=== PATIENT | female | born 1930 | race Caucasian/White ===

== ENCOUNTER → 2018-02-05 | Outpatient (CLI) | payer MEDICARE, OTHER ==
[~2018-02-05] MED LIST: AMBEREN PO; ASPIRIN EC81 M1 PO; ATENOLOL 50 MG50 M1 PO; B-12500 MCG PO; CALCIUM PO; CARDURA4 MG PO; CLONIDINE0.1 PO; CO Q-1010 MG PO; COZAAR 25 MG TA25 M1 PO; FLAGYL500 MG PO; FLEXERIL PO; HYDRALAZINE 5050 M1 PO; KLOR-CON 10 ER10 MEQ PO; KLOR-CON 1010 MEQ PO; LASIX 20 MG TAB20 MG PO; LISINOPRIL10 MG PO; MELOXICAM15 MG PO; MIRALAX255 GM PO; MOBIC7.5 MG PO; MULTIVITAMINS1 EAC7 PO; MYRBETRIQ50 MG PO; NITROGLYCERIN0.4 MG SUBLING; NORCO 5-325 TA1 EACH PO; NORVASC 2.5 MG2.5 M1; NORVASC 5 MG TAB5 MG PO; OMEPRAZOLE PO; PEPCID AC20 M1 PO; PHENERGAN 25 MG25 M1 PO; PLAVIX 75 MG TA75 MG PO; PRILOSEC 20 MG20 MG PO; TENORMIN50 MG PO; TIROSINT75 MCG PO; TRIAMTERENE-HC1 EAC1 PO; TUMS PO; ULTRAM 50MG TAB50 MG PO; XANAX 0.25 MG0.25 MG PO; ZOCOR40 MG PO; ZOLOFT 50 MG TA50 MG PO
[2018-02-05 12:33] LABS: ABSOLUTE EOSINOPHILS 0.3 thou/uL (0.0-0.7); ABSOLUTE LYMPHOCYTES 1.6 thou/uL (0.8-5.3); ABSOLUTE NEUTROPHILS 4.3 thou/uL (1.6-8.1); BASOPHILS 0.6 %; EOSINOPHILS 4.5 %; HEMATOCRIT 31.9 % (37.0-47.0); HEMOGLOBIN 10.9 gm/dL (12.0-15.0); MCH 31.7 pg (26.0-34.0); MCHC 34.1 g/dL (28.0-37.0); MONOCYTES 13.8 %; MPV 8.5 fl. (7.2-11.1); NUCLEATED RBCS 0 /100WBC; PLATELET COUNT* 217 thou/uL (150-400); POLYS 59.1 %; RBC 3.43 mil/uL (4.20-5.00); RDW-CV 13.2 % (10.5-14.5); WBC 7.3 thou/uL (4.0-11.0)
[2018-02-05 12:39] LABS: URINE BILIRUBIN NEGATIVE (Negative); URINE BLOOD NEGATIVE (Negative); URINE CLARITY CLEAR; URINE COLOR YELLOW; URINE GLUCOSE-RANDOM NEGATIVE (Negative); URINE KETONES NEGATIVE (Negative); URINE LEUKOCYTES NEGATIVE (Negative); URINE NITRITE NEGATIVE (Negative); URINE PROTEIN NEGATIVE (Negative); URINE UROBILINOGEN 0.2 E.U./dl (0.2-1.0)
[2018-02-05 12:40] LABS: CALCIUM 9.2 mg/dL (8.5-10.1); CREATININE 1.9 mg/dL (0.6-1.3); MAGNESIUM 2.3 mg/dL (1.8-2.4); POTASSIUM 4.4 mmol/L (3.5-5.1)
== END ==
LOC: M.LAB 11:39
PROVIDERS: Internal Medicine
DX: N18.3 Chronic kidney disease, stage 3 (moderate) (principal); I70.213 Atherosclerosis of native arteries of extremities with intermittent claudication, bilateral legs